=== PATIENT | female | born 1955 | race Caucasian/White ===

== ENCOUNTER 2016-06-29 12:08 | Inpatient (IN) | payer OTHER ==
[~2016-06-29] VITALS: Ht 167.6 cm; Wt 101.0 kg
[~2016-06-29 12:08] MED LIST changes: -ASPI1TAB69 PO; -BENA40TA PO; -CETI1TAB39 PO; -CYCL1TAB29 PO; -HYDR-3366 PO; -MULTTAB67 PO; -OXYB10TA PO; -PREV15CA15 PO; -VITA10002 PO; -VITA10007 PO; -VITA200T; -WALKER WHEELS/F1 MIS
[2016-06-29] MEDS ORDERED: PREV15CA15 PO (12:33)
[2016-06-29] MEDS ORDERED: BENA40TA PO (12:33)
[2016-06-29] MEDS ORDERED: VITA200T (12:35)
[2016-06-29] MEDS ORDERED: MULTTAB67 PO (12:35)
[2016-06-29] MEDS ORDERED: ASPI1TAB69 PO (12:35)
[2016-06-29] MEDS ORDERED: CETI1TAB39 PO (12:35)
[2016-06-29] MEDS ORDERED: VITA10007 PO (12:35)
[2016-06-29] MEDS ORDERED: OXYB10TA PO (14:04)
[2016-07-05] MEDS ORDERED: LACTATED RINGER'S 1000 ML IV SCH (06:45)
[2016-07-05] MEDS ORDERED: INSULIN HUMAN REGULAR 1,000 UNITS/10 ML VIAL SQ PRN (06:45)
[2016-07-05] MEDS ORDERED: VANCOMYCIN HCL 1000 MG ON-CALL/NS 250 ML IV SCH ×2 (06:45)
[2016-07-05] MEDS ORDERED: SODIUM CHLORID 0.9% 500 ML IV SCH (06:45)
[2016-07-05] MEDS ORDERED: METOPROLOL TARTRATE 25 MG TAB PO PRN (06:45)
[2016-07-05 07:01] VITALS: BP 177/84; PULSE 64; RESP 20; TEMP 98; O2SAT 95
[2016-07-05] MEDS ORDERED: THROMBIN (TOPICAL) 5,000 UNIT VIAL ONE (07:35)
[2016-07-05] MEDS ORDERED: GELFOAM SIZE 100 ONE (07:35)
[2016-07-05] MEDS ORDERED: FAMOTIDINE 20 MG/2 ML VIAL ONE (07:54)
[2016-07-05] MEDS ORDERED: DEXAMETHASONE SOD PHOS 4 MG/ML VIAL ONE (07:54)
[2016-07-05] MEDS ORDERED: MIDAZOLAM HCL 2 MG/2 ML VIAL ONE (07:54)
[2016-07-05] MEDS ORDERED: ACETAMINOPHEN 1000 MG/100 ML VIAL IV ONE (07:54)
[2016-07-05] MEDS: BUPIVACAINE/EPINEPHRINE 0.5% 50 ML VIAL ONE ×2 (08:48→10:12)
[2016-07-05] MEDS ORDERED: SUGAMMADEX SODIUM 200 MG/2 ML VIAL IV PUSH ONE ×2 (08:59)
[2016-07-05] MEDS: VANCOMYCIN HCL 1000 MG VIAL ONE ×2 (09:47→10:13)
[2016-07-05] MEDS ORDERED: fentaNYL CITRATE 250 MCG/5 ML AMP ONE (10:47)
[2016-07-05] MEDS ORDERED: *ONDANSETRON 4 MG VIAL PERIprocedural Use ONLY ONE (10:55)
[2016-07-05] MEDS ORDERED: ZOLPIDEM TARTRATE 5 MG TAB PO PRN (11:00)
[2016-07-05] MEDS ORDERED: ALUMINUM/MAGNESIUM/SIMETH 30 ML CUP PO PRN (11:00)
[2016-07-05] MEDS ORDERED: PROMETHAZINE INJ 25 MG/ML VIAL IM PRN (11:00)
[2016-07-05] MEDS ORDERED: SODIUM CHLORIDE 0.9% FLUSH 5 ML FLUSH IVF PRN (11:00)
[2016-07-05] MEDS ORDERED: ACETAMINOPHEN 325 MG TAB PO PRN (11:00)
[2016-07-05] MEDS ORDERED: diphenhydrAMINE HCL 50 MG/ML VIAL IV PRN (11:00)
[2016-07-05] MEDS ORDERED: MAGNESIUM SULFATE INJ 2 GM in SODIUM CHLORIDE 0.9% INJ 100 ML IV PRN (11:00)
[2016-07-05] MEDS ORDERED: CALCIUM GLUCONATE INJ 1 GM in SODIUM CHLORIDE 0.9% INJ 100 ML IV PRN (11:00)
[2016-07-05] MEDS ORDERED: MORPHINE SULFATE 30 MG/30 ML PCA IV SCH (11:00)
[2016-07-05] MEDS ORDERED: BISACODYL 10 MG SUPP PR PRN (11:00)
[2016-07-05] MEDS ORDERED: NALOXONE HCL 0.4 MG/ML AMP IV PRN (11:00)
[2016-07-05] MEDS ORDERED: POTASSIUM CHLOR 20 MEQ PREMIX 100 ML IV PRN (11:00)
--- NOTE | 2016-07-05 11:01 | PD.OP ---
Senia Tapia M.D. Operative Report Date of Surgery: Jul 05, 2016 Preoperative Diagnosis: Intractable back pain with right L5 radiculopathy; severe L5-S1 degenerative disc disease with the facet arthropathy and disc protrusion with associated foraminal stenosis Postoperative Diagnosis: Same Procedure: Right L5-S1 transforaminal interbody fusion; L5-S1 pedicle screw fixation; L5- S1 interbody cage placement; microsurgical technique Anesthesia: Gen. endotracheal by Marco Adair Surgeon: Sachin Ruano M.D. Compliance Officer(s): Libby Alonso Operation and Findings: Following initiation of general endotracheal anesthesia, the patient had a Banda catheter placed along with sequential compression devices. A gram of vancomycin was administered intravenously and she was turned in a prone position on a Teo frame, on a Maulik table, and all pressure points adequately padded. The lumbosacral region was then prepped with Chloraprep and sterilely draped with Ioban along the usual sterile draping. A right paraspinal skin incision was then made extending from the L5-S1 level after infiltrating the skin with 0.5% Marcaine with epinephrine solution extending down through the fascia. The muscle fibers were split using avascular fatty plane and detached from the underlying facets, transverse process and lateral portion of lamina on the right side and a self-retaining retractor used for exposure. Intraoperative fluoroscopy was also used for level of confirmation along with microscope magnification for further dissection. There was significant facet and ligamentum flavum hypertrophy noted at the L5-S1 levels. Right L5-S1 facet was resected with a drill bit along with the lamina and there was severe foraminal and lateral recess stenosis from hypertrophied ligamentum flavum and facet which were decompressed. There was significant disc height collapse along with disc protrusion also leading to the foraminal stenosis. Epidural hemostasis was achieved with bipolar cautery and Gelfoam with thrombin. Subsequently entered into the disc space at the L5-S1 level with a #15 blade and annie were used for discectomy. I then placed PEEK cage packed with local autograft bone and more local autograft bone was packed adjacent to the cage in interspace for added interbody fusion. With placement of the cage, I was able to distract the interspace and opened up the foramen further bilaterally. Subsequently in order to facilitate the fusion and provide stabilization, pedicle screw fixation was undertaken using [place] spine screws on entry point at the right L5-S1 levels at the junction of the transverse process and facet. Subsequently using AP and lateral fluoroscopy tap and screw placement. The screws were then connected with a juaquin and locked in place with caps. The construct appeared very secure at this point. The area was then copiously irrigated with Vancomycin solution and powder. The retractors were removed and the bipolar cautery used for hemostasis. The muscle fascia was then approximated using 2-0 Vicryl interrupted stitches and then 3-0 Vicryl subcuticular stitches also placed in interrupted fashion. The final skin closure was completed with Mastisol and Steri-Strips. A sterile dressing was then applied. The patient then turned in supine position, extubated and taken to recovery room. There were no intraoperative complications. All sponge and needle counts were correct at the end of procedure. Estimated blood loss about 50 ml. Sachin Ruano MD Jul 05, 2016 11:00
--- NOTE | 2016-07-05 11:09 | RADRPT ---
EXAM DATE/TIME: 07/05/2016 08:07 [facility] COMPARISON: FLUOROSCOPY PORTABLE UP TO 1HR, July 05, 2016, 0:00. INDICATIONS : Post-op L5-S1 posterior lumbar fusion. MEDICAL HISTORY : None. SURGICAL HISTORY : None. ENCOUNTER: Initial ACUITY: 1 day PAIN SCORE: Non-responsive. LOCATION: Lumbar spine. FINDINGS: AP and lateral fluoroscopic views of the spine demonstrate surgical hardware traversing the right L5 and S1 spine with good anatomic alignment.. CONCLUSION: Fluoroscopic support for posterior spinal fusion.. Nicole Stokes MD on July 05, 2016 at 11:05 Board Certified Radiologist. This report was verified electronically.
--- NOTE | 2016-07-05 11:10 | RADRPT ---
EXAM DATE/TIME: 07/05/2016 08:07 [facility] COMPARISON: FLUOROSCOPY PORTABLE UP TO 1HR, July 05, 2016, 0:00. INDICATIONS : L5-S1 posterior lumbar fusion. Level localization. MEDICAL HISTORY : None. SURGICAL HISTORY : None. ENCOUNTER: Initial ACUITY: 1 day PAIN SCORE: Non-responsive. LOCATION: Lumbar spine. FINDINGS: A single lateral view of the lumbar spine was performed. There is normal alignment of the vertebral bodies without evidence of subluxation. There is a localizer seen posterior to the L5/ S1 disc space. CONCLUSION: Localizer seen posterior to the L5/S1 disc space. Nicole Stokes MD on July 05, 2016 at 11:07 Board Certified Radiologist. This report was verified electronically.
[2016-07-05] MEDS: NS + KCL 20 MEQ INJ 1,000 ML IV SCH ×2 (11:15→23:26)
[2016-07-05 11:25] LABS: AUTOMATED NEUTROPHIL # 6.8 TH/MM3 (1.8-7.7); BASOPHIL % 0.2 % (0.0-2.0); EOSINOPHIL # 0.1 TH/MM3 (0-0.4); EOSINOPHIL % 0.6 % (0.0-4.0); HEMATOCRIT 39.7 % (35.0-46.0); HEMO FLAGS DIFF FINAL; LYMPH % 16.2 % (9.0-44.0); LYMPHOCYTE # 1.4 TH/MM3 (1.0-4.8); MEAN CELL VOLUME 92.8 FL (80.0-100.0); MEAN CORPUSCULAR HEMOGLOBIN 30.4 PG (27.0-34.0); MEAN CORPUSCULAR HGB CONC 32.8 % (32.0-36.0); MONO % 1.6 % (0.0-8.0); NEUT % 81.4 % (16.0-70.0); PLATELET COUNT 227 TH/MM3 (150-450); RED BLOOD COUNT 4.28 MIL/MM3 (4.00-5.30); RED CELL DISTRIBUTION WIDTH 14.3 % (11.6-17.2); WHITE BLOOD COUNT 8.4 TH/MM3 (4.0-11.0)
[2016-07-05 11:37] LABS: BICARBONATE 27.3 MEQ/L (21.0-32.0); MAGNESIUM 1.7 MG/DL (1.5-2.5); POTASSIUM 3.7 MEQ/L (3.5-5.1)
[2016-07-05] MEDS ORDERED: ONDANSETRON HCL 4 MG/2 ML VIAL IV PUSH ONE (12:00)
[2016-07-05] MEDS ORDERED: ACETAMINOPHEN/HYDROcodone 325 MG/10 MG TAB PO PRN ×2 (12:00)
[2016-07-05] MEDS ORDERED: PHENYLEPH/NS 1000 MCG/10 ML SYR IV ONE (12:00)
[2016-07-05] MEDS ORDERED: LACTATED RINGER'S 1000 ML INJ 1,000 ML IV ONE (12:00)
[2016-07-05] MEDS ORDERED: ePHEDrine/NS 50 MG/5 ML SYR IV ONE (12:00)
[2016-07-05] MEDS ORDERED: ONDANSETRON HCL 4 MG/2 ML VIAL IV PRN (12:00)
[2016-07-05] MEDS ORDERED: DO NOT ADM ANY ANTICOAGULANT DRUGS XX PRN (12:00)
[2016-07-05] MEDS ORDERED: RESP: ALBUTEROL 2.5 MG/3 ML NEB (PRN) NEB (12:00)
[2016-07-05] MEDS ORDERED: MENTHOL LOZENGE SUCK-ON PRN (12:00)
[2016-07-05] MEDS ORDERED: PROPOFOL 200 MG/20 ML AMP IV ONE (12:00)
[2016-07-05] MEDS ORDERED: MAGNESIUM SULFATE 1 GM PREMIX 100 ML ONE (12:11)
[2016-07-05] MEDS ORDERED: *morphine SULFATE 8 MG/ML PERIprocedure ONLY ONE (12:33)
[2016-07-05] MEDS ORDERED: cloNIDine HCL 0.1 MG TAB PO PRN (13:00)
[2016-07-05] MEDS ORDERED: MAGNESIUM HYDROXIDE SUSP 30 ML CUP PO PRN (13:00)
[2016-07-05] MEDS ORDERED: *PROMETHAZINE 25 MG/ML VIAL PERIprocedural use ONLY ONE (13:14)
[2016-07-05] MEDS: CYCLOBENZAPRINE HCL 10 MG TAB PO SCH ×2 (13:45→20:08)
[2016-07-05] MEDS: PREGABALIN 100 MG CAP PO SCH ×2 (13:45→18:33)
[2016-07-05] MEDS: PCA - TOTAL MG MORPHINE DELIVERED PER SHIFT SCH ×2 (14:00→20:08)
[2016-07-05 14:40] VITALS: BP 128/63; PULSE 74; RESP 16; TEMP 96.8; O2SAT 97
[2016-07-05 20:00] VITALS: BP 129/64; PULSE 70; RESP 17; TEMP 95.2; O2SAT 96
[2016-07-05] MEDS: DOCUSATE SODIUM 100 MG CAP PO SCH (20:08)
[2016-07-05] MEDS: ATORVASTATIN 10 MG TAB PO SCH (20:08)
[2016-07-05] MEDS: SODIUM CHLORIDE 0.9% FLUSH 5 ML FLUSH IVF SCH (20:08)
[2016-07-06] VITALS (7 sets, daily range): BP systolic 114–156; BP diastolic 58–76; PULSE 60–79; RESP 16; TEMP 95.7–98.6; O2SAT 63–99
[2016-07-06] MEDS: CYCLOBENZAPRINE HCL 10 MG TAB PO SCH ×3 (04:00→20:50)
[2016-07-06] MEDS: PCA - TOTAL MG MORPHINE DELIVERED PER SHIFT SCH (06:00)
[2016-07-06] MEDS: LEVOTHYROXINE SODIUM 112 MCG TAB PO SCH (06:16)
--- NOTE | 2016-07-06 09:42 | HHI.NSPN ---
(Juliano Cole) History Chief Complaint: Incisional back pain (Juliano Cole) Interval History Pt underwent a L5/S1 TLIF with cage and pedicle screw fixation on 07/05/16. She complains of incisional back pain but tolerating well. No radiculopathy or paresthesias in LEs. She complains of burning sensation in right foot. Ambulating short distance. Sitting up with brace on. (Juliano Cole) Review of Systems General: Negative for: fever, chills, insomnia Respiratory: Negative for: shortness of breath, cough, sputum Cardiovascular: Negative for: chest pain Gastrointestinal: Negative for: nausea, vomitting, diarrhea, constipation ( Juliano Cole) Exam Results Vital Signs Date Time Temp Pulse Resp B/P Pulse Ox O2 Delivery O2 Flow Rate FiO2 07/06/16 08:00 97.2 60 16 146/76 97 07/05/16 17:58 Nasal Cannula 2.00 Intake and Output 07/05/16 07/05/16 07/06/16 08:00 16:00 00:00 Intake Total 100 ml 808 ml Output Total 325 ml 2375 ml Balance -225 ml -1567 ml (Juliano Cole) Physical Examination Resp: CTA bilaterally Heart: NSR no murmurs Abd: Soft positive bs Skin: No cyanosis or erythema. Pt up in chair with breakfast will ask RN to change bandage when back in bed. Muscle: Moves LEs with good strength. Neuro: Pt awake and alert. Follows commands well. Speech clear and appropriate. (Juliano Cole) Lab, Micro, Other Results Laboratory Tests Test 07/05/16 11:12 White Blood Count 8.4 TH/MM3 Red Blood Count 4.28 MIL/MM3 Hemoglobin 13.0 GM/DL Hematocrit 39.7 % Mean Corpuscular Volume 92.8 FL Mean Corpuscular Hemoglobin 30.4 PG Mean Corpuscular Hemoglobin 32.8 % Concent Red Cell Distribution Width 14.3 % Platelet Count 227 TH/MM3 Mean Platelet Volume 7.4 FL Neutrophils (%) (Auto) 81.4 % Lymphocytes (%) (Auto) 16.2 % Monocytes (%) (Auto) 1.6 % Eosinophils (%) (Auto) 0.6 % Basophils (%) (Auto) 0.2 % Neutrophils # (Auto) 6.8 TH/MM3 Lymphocytes # (Auto) 1.4 TH/MM3 Monocytes # (Auto) 0.1 TH/MM3 Eosinophils # (Auto) 0.1 TH/MM3 Basophils # (Auto) 0.0 TH/MM3 CBC Comment DIFF FINAL Differential Comment Sodium Level 141 MEQ/L Potassium Level 3.7 MEQ/L Chloride Level 107 MEQ/L Carbon Dioxide Level 27.3 MEQ/L Anion Gap 7 MEQ/L Blood Urea Nitrogen 10 MG/DL Creatinine 0.81 MG/DL Estimat Glomerular Filtration 72 ML/MIN Rate Random Glucose 155 MG/DL Calcium Level 8.7 MG/DL Magnesium Level 1.7 MG/DL 07/05/16 07/05/16 07/06/16 15:00 23:00 07:00 Intake Total 100 ml 808 ml 1040 ml Output Total 325 ml 2375 ml 1475 ml Balance -225 ml -1567 ml -435 ml Intake Oral 360 ml 240 ml IV Total 100 ml 448 ml 800 ml Output Urine Total 325 ml 2375 ml 1475 ml # Bowel Movements 0 0 (Juliano Cole) Medical Decision Making Impression and Plan A: 60 y/o FM s/p L5/S1 TLIF with cage and pedicle screw fixation P: Continue to monitor Continue with current care Rehab efforts. (Juliano Cole) Attending Statement The exam, history, and the medical decision-making described in the above note were completed with the assistance of the mid-level provider. I reviewed and agree with the findings presented. I attest that I had a [id number] encounter with the patient on the same day, and personally performed and documented my assessment and findings in the medical record. Mild incisional pain and significantly improved right leg pain. Ambulating in hallway independently with a walker. Possible d/c tomorrow if stable. (Sachin Ruano MD) Juliano Cole Jul 06, 2016 09:41 Sachin Ruano MD Jul 06, 2016 11:25
[2016-07-06] MEDS: MULTIVITAMIN TAB PO SCH (10:00)
[2016-07-06] MEDS: PREGABALIN 100 MG CAP PO SCH ×3 (10:00→18:31)
[2016-07-06] MEDS: LISINOPRIL 20 MG TAB PO SCH (10:00)
[2016-07-06] MEDS: VENLAFAXINE HCL XR 75 MG CAP PO SCH (10:01)
[2016-07-06] MEDS: DOCUSATE SODIUM 100 MG CAP PO SCH ×2 (10:01→20:50)
[2016-07-06] MEDS: PANTOPRAZOLE SOD 20 MG DELAYED RELEASE TAB PO SCH (10:01)
[2016-07-06] MEDS: amLODIPine BESYLATE 5 MG TAB PO SCH (10:02)
[2016-07-06] MEDS: ASPIRIN EC 81 MG TABEC PO SCH (10:02)
[2016-07-06] MEDS: TOLTERODINE TARTRATE 4 MG CAP LA PO SCH (10:02)
[2016-07-06] MEDS: CETIRIZINE HCL 10 MG TAB PO SCH (10:03)
[2016-07-06] MEDS: SODIUM CHLORIDE 0.9% FLUSH 5 ML FLUSH IVF SCH ×2 (10:03→20:51)
[2016-07-06] MEDS ORDERED: MORPHINE SULFATE 4 MG/ML INJ IV PUSH PRN (10:15)
[2016-07-06] MEDS: LIOTHYRONINE SODIUM 5 MCG TAB PO SCH (10:15)
[2016-07-06] MEDS ORDERED: CYCL1TAB29 PO (10:18)
[2016-07-06] MEDS ORDERED: HYDR-3366 PO (10:18)
[2016-07-06] MEDS: ATORVASTATIN 10 MG TAB PO SCH (20:50)
[2016-07-07] VITALS: BP 145/76; PULSE 65; RESP 16; TEMP 97.9; O2SAT 94
[2016-07-07] MEDS: LEVOTHYROXINE SODIUM 112 MCG TAB PO SCH (05:00)
[2016-07-07] MEDS: CYCLOBENZAPRINE HCL 10 MG TAB PO SCH ×2 (05:00→11:38)
[2016-07-07 08:00] VITALS: BP 118/64; PULSE 71; RESP 18; TEMP 98.2; O2SAT 95
[2016-07-07] MEDS: LIOTHYRONINE SODIUM 5 MCG TAB PO SCH (09:00)
[2016-07-07] MEDS: PANTOPRAZOLE SOD 20 MG DELAYED RELEASE TAB PO SCH (09:20)
[2016-07-07] MEDS: PREGABALIN 100 MG CAP PO SCH ×2 (09:20→11:38)
[2016-07-07] MEDS: CETIRIZINE HCL 10 MG TAB PO SCH (09:20)
[2016-07-07] MEDS: DOCUSATE SODIUM 100 MG CAP PO SCH (09:20)
[2016-07-07] MEDS: ASPIRIN EC 81 MG TABEC PO SCH (09:20)
[2016-07-07] MEDS: MULTIVITAMIN TAB PO SCH (09:20)
[2016-07-07] MEDS: VENLAFAXINE HCL XR 75 MG CAP PO SCH (09:20)
[2016-07-07] MEDS: TOLTERODINE TARTRATE 4 MG CAP LA PO SCH (09:20)
[2016-07-07] MEDS: amLODIPine BESYLATE 5 MG TAB PO SCH (09:20)
[2016-07-07] MEDS: LISINOPRIL 20 MG TAB PO SCH (09:21)
[2016-07-07] MEDS: SODIUM CHLORIDE 0.9% FLUSH 5 ML FLUSH IVF SCH (09:26)
--- NOTE | 2016-07-07 10:58 | HHI.NSPN ---
History Chief Complaint: Incisional back pain Interval History Pt underwent a L5/S1 TLIF with cage and pedicle screw fixation on 07/05/16. She complains of incisional back pain but tolerating well. No radiculopathy or paresthesias in LEs. She complains of burning sensation in right foot. Ambulating short distance. Sitting up with brace on. 07/07/16: Pt awake and alert. Doing well. Mild incisional back pain. No radiculopathy or paresthesias in LEs. Ambulating with walker in halls. Wants to go home today. Review of Systems General: Negative for: fever, chills, insomnia Respiratory: Negative for: shortness of breath, cough, sputum Cardiovascular: Negative for: chest pain Gastrointestinal: Negative for: nausea, vomitting, diarrhea, constipation Exam Results Vital Signs Date Time Temp Pulse Resp B/P Pulse Ox O2 Delivery O2 Flow Rate FiO2 07/07/16 08:00 98.2 71 18 118/64 95 07/06/16 23:09 21 07/05/16 17:58 Nasal Cannula 2.00 Intake and Output 07/06/16 07/06/16 07/07/16 08:00 16:00 00:00 Intake Total 1040 ml 480 ml 480 ml Output Total 1475 ml Balance -435 ml 480 ml 480 ml Physical Examination Resp: CTA bilaterally Heart: NSR no murmurs Abd: Soft positive bs Skin: No cyanosis or erythema. Incision is clean and dry. No signs of infection. New bandage placed. Muscle: Moves LEs with good strength. Ambulating well. Neuro: Pt awake and alert. Follows commands well. Speech clear and appropriate. Lab, Micro, Other Results Last Impressions Lumbar Spine X-Ray 07/05/16 0000 Signed Impressions: Service Date/Time: June 08:07 - CONCLUSION: Localizer seen posterior to the L5/S1 disc space. Nicole Stokes MD 07/06/16 07/06/16 07/07/16 15:00 23:00 07:00 Intake Total 480 ml 480 ml 480 ml Balance 480 ml 480 ml 480 ml Intake Oral 480 ml 480 ml 480 ml # Voids 3 2 2 # Bowel Movements 0 Medical Decision Making Impression and Plan A: 60 y/o FM s/p L5/S1 TLIF with cage and pedicle screw fixation P: Discharge pt home. Follow up as scheduled. Juliano Cole Jul 07, 2016 10:58
[2016-07-10] MEDS ORDERED: WALKER WHEELS/F1 MIS (14:33)
[2016-10-25] MEDS ORDERED: VITA10002 PO (11:23)
== END 2016-07-07 11:58 | disposition home or self-care (01) | DRG 460 ==
LOC: HSDI 07-05 06:11 → EDUNIT# 07-05 08:00 → N06A 07-05 13:46
PROVIDERS: ADMIT Neurological Surgery; ATTEND Neurological Surgery
PROC: 0ST40ZZ Resection of Lumbosacral Disc, Open Approach (ICD-10-PCS; 2016-07-05)
PROC: 0SG30AJ Fusion of Lumbosacral Joint with Interbody Fusion Device, Posterior Approach, Anterior Column, Open Approach (ICD-10-PCS; principal; 2016-07-05 08:00)
DX: M51.17 Intervertebral disc disorders with radiculopathy, lumbosacral region (principal); E87.5 Hyperkalemia; I10 Essential (primary) hypertension; G57.12 Meralgia paresthetica, left lower limb; M48.07 Spinal stenosis, lumbosacral region; G47.30 Sleep apnea, unspecified; K21.9 Gastro-esophageal reflux disease without esophagitis; E03.9 Hypothyroidism, unspecified; E66.9 Obesity, unspecified; Z68.35 Body mass index [BMI] 35.0-35.9, adult; Z88.2 Allergy status to sulfonamides; Z87.891 Personal history of nicotine dependence
CPT/HCPCS: 72020; 72100; 76000; 80048; 83735; 85025; 86850; 86900; 86901; 94150; C1713; J0131; J0690; J1100; J2250; J2270; J2370; J2405; J2550; J3010; J3370; J3475; J3480; J7050; J7120

== ENCOUNTER → 2016-06-29 | Outpatient (CLI) | payer OTHER ==
[~2016-06-29] MED LIST: AMLO5TAB2 PO; ASPI1TAB69 PO; ATOR10TA15 PO; BENA40TA PO; CETI1TAB39 PO; CYCL1TAB29 PO; HYDR-3366 PO; LEVO112T2 PO; LIOT5TAB3 PO; LYRI100C PO; MULTTAB67 PO; OXYB10TA PO; PREV15CA15 PO; VENL75TA PO; VITA10002 PO; VITA10007 PO; VITA200T; WALKER WHEELS/F1 MIS
== END ==
LOC: CPRE 12:03
PROVIDERS: ATTEND Neurological Surgery
DX: Z01.812 Encounter for preprocedural laboratory examination (principal); M51.36 Other intervertebral disc degeneration, lumbar region; M51.16 Intervertebral disc disorders with radiculopathy, lumbar region; M99.83 Other biomechanical lesions of lumbar region; G57.12 Meralgia paresthetica, left lower limb

== ENCOUNTER → 2016-10-26 | Outpatient (CLI) | payer OTHER ==
[~2016-10-26] VITALS: Ht 167.6 cm; Wt 100.0 kg
[~2016-10-26] MED LIST changes: +ASPI1TAB69 PO; +BENA40TA PO; +CETI1TAB39 PO; +HYDR-3366 PO; +MULTTAB67 PO; +OXYB10TA PO; +PREV15CA15 PO; +VITA10002 PO; +VITA10007 PO; +WALKER WHEELS/F1 MIS
[2016-10-26 07:15] VITALS: BP 150/78; PULSE 64; RESP 16; TEMP 97.9; O2SAT 97
== END ==
LOC: HEND 06:48
PROVIDERS: ATTEND Internal Medicine Gastroenterology
DX: K44.9 Diaphragmatic hernia without obstruction or gangrene (principal)
CPT/HCPCS: 91010

== ENCOUNTER 2017-02-20 09:50 | Observation (INO) | payer OTHER ==
[~2017-02-20] VITALS: Ht 167.6 cm; Wt 100.2 kg
[~2017-02-20 09:50] MED LIST changes: +ASCO500T PO; +ASPI-110 PO; -ASPI1TAB69 PO; +CETI10 PO; -CETI1TAB39 PO; +CYAN1000P IM; -LYRI100C PO; +SLOW50TA PO; +VITA1000 PO; -VITA10002 PO; -VITA10007 PO; -WALKER WHEELS/F1 MIS
[2017-02-20] MEDS ORDERED: SODIUM CHLORID 0.9% 500 ML IV PRN (10:30)
[2017-02-20] MEDS ORDERED: CHLORHEXIDINE GLUCONATE 2 % 1 PACK (2 CLOTHS) TOPICAL PRN (10:30)
[2017-02-20] MEDS ORDERED: METOPROLOL TARTRATE 25 MG TAB PO PRN (10:30)
[2017-02-20] MEDS ORDERED: LACTATED RINGER'S 1000 ML IV PRN (10:30)
[2017-02-20] MEDS ORDERED: POVIDONE IODINE 5% (ANTISEPSIS KIT) 4 APPLICATIONS EACH NARE PRN (10:30)
[2017-02-20] MEDS ORDERED: INSULIN HUMAN REGULAR 1,000 UNITS/10 ML VIAL SQ PRN (10:30)
[2017-02-20] MEDS ORDERED: ONDANSETRON HCL 4 MG/2 ML VIAL IV PUSH SCH (10:45)
[2017-02-20] MEDS ORDERED: ACETAMINOPHEN 1000 MG/100 ML VIAL IV SCH (10:45)
[2017-02-20] MEDS ORDERED: metroNIDAZOLE 500 MG INJ 100 ML IV SCH (10:45)
[2017-02-20] MEDS ORDERED: ceFAZolin 2 GM PREMIX 50 ML IV SCH (10:45)
[2017-02-20] MEDS ORDERED: APREPITANT 40 MG CAP PO SCH (10:45)
[2017-02-20] MEDS ORDERED: PROPOFOL 200 MG/20 ML AMP IV ONE (12:00)
[2017-02-20] MEDS ORDERED: PHENYLEPH/NS 1000 MCG/10 ML SYR IV ONE (12:00)
[2017-02-20] MEDS ORDERED: ONDANSETRON HCL 4 MG/2 ML VIAL IV PUSH ONE (12:00)
[2017-02-20] MEDS ORDERED: ePHEDrine/NS 25 MG/5 ML SYR IV ONE (12:00)
[2017-02-20] MEDS ORDERED: ACETAMINOPHEN 1000 MG/100 ML 0 ML IV ONE (13:21)
[2017-02-20] MEDS ORDERED: SUGAMMADEX SODIUM 200 MG/2 ML VIAL IV PUSH ONE ×2 (13:21)
[2017-02-20] MEDS ORDERED: BUPIVACAINE/EPINEPHRINE 0.25% 50 ML VIAL ONE (13:32)
[2017-02-20] MEDS ORDERED: MIDAZOLAM HCL 2 MG/2 ML VIAL ONE (13:42)
[2017-02-20] MEDS ORDERED: FAMOTIDINE 20 MG TAB ONE (13:43)
[2017-02-20] MEDS ORDERED: METOCLOPRAMIDE HCL 10 MG/2 ML VIAL ONE (13:46)
[2017-02-20] MEDS ORDERED: MAGNESIUM HYDROXIDE SUSP 30 ML CUP PO PRN (17:45)
[2017-02-20] MEDS ORDERED: HYDROmorphone HCL PF 1 MG/ML VIAL IV PUSH PRN (17:45)
[2017-02-20] MEDS ORDERED: ONDANSETRON HCL 4 MG/2 ML VIAL IV PRN (17:45)
[2017-02-20] MEDS ORDERED: SODIUM CHLORIDE 0.9% FLUSH 10 ML FLUSH IV FLUSH PRN (17:45)
[2017-02-20] MEDS ORDERED: Post-op Orders (for Pharmacy) MISC XX ONE (17:45)
[2017-02-20] MEDS ORDERED: ACETAMINOPHEN 325MG/HYDROcodone 7.5MG/15ML UDC PO PRN (17:45)
[2017-02-20] MEDS ORDERED: DO NOT ADM ANY ANTICOAGULANT DRUGS PRN (18:00)
[2017-02-20] MEDS ORDERED: *morphine SULFATE 8 MG/ML PERIprocedure ONLY ONE ×2 (18:19→19:17)
[2017-02-20] MEDS: SODIUM CHLOR 0.9% 1000 ML INJ 1,000 ML IV SCH (18:23)
[2017-02-20 20:00] VITALS: BP 133/63; PULSE 81; RESP 16; TEMP 96; O2SAT 95
[2017-02-20] MEDS: SODIUM CHLORIDE 0.9% FLUSH 10 ML FLUSH IV FLUSH SCH (21:00)
[2017-02-20] MEDS: metroNIDAZOLE 500 MG INJ 100 ML IV SCH (21:02)
[2017-02-21] VITALS: BP 141/65; PULSE 72; RESP 16; TEMP 96.7; O2SAT 94
[2017-02-21 04:00] VITALS: BP 153/70; PULSE 72; RESP 16; TEMP 96.4; O2SAT 96
[2017-02-21] MEDS: SODIUM CHLOR 0.9% 1000 ML INJ 1,000 ML IV SCH ×2 (05:30→14:02)
[2017-02-21] MEDS: metroNIDAZOLE 500 MG INJ 100 ML IV SCH ×2 (05:31→13:38)
[2017-02-21] MEDS: ACETAMINOPHEN 325MG/HYDROcodone 7.5MG/15ML UDC PO PRN ×3 (05:38→13:35)
[2017-02-21] MEDS ORDERED: LIOTHYRONINE SODIUM 5 MCG TAB PO SCH (06:00)
[2017-02-21 06:14] VITALS: O2SAT 96
[2017-02-21 08:00] VITALS: BP 165/72; PULSE 70; RESP 19; TEMP 98.3; O2SAT 95
[2017-02-21] MEDS ORDERED: LISINOPRIL 20 MG TAB PO SCH (09:00)
[2017-02-21] MEDS ORDERED: VENLAFAXINE HCL XR 75 MG CAP PO SCH (09:00)
[2017-02-21] MEDS ORDERED: amLODIPine BESYLATE 5 MG TAB PO SCH (09:00)
[2017-02-21] MEDS: SODIUM CHLORIDE 0.9% FLUSH 10 ML FLUSH IV FLUSH SCH (09:00)
[2017-02-21 12:00] VITALS: BP 146/63; PULSE 60; RESP 19; TEMP 97; O2SAT 95
--- NOTE | 2017-02-21 12:11 | HHI.PR ---
Subjective Subjective Notes Sitting in chair Pain controlled C/O nausea Objective Vitals/I&O Vital Signs Date Time Temp Pulse Resp B/P (MAP) Pulse Ox O2 Delivery O2 Flow Rate FiO2 02/21/17 08:00 98.3 70 19 165/72 (103) 95 02/21/17 06:14 Nasal Cannula 2.00 Abdomen: Post-op tenderness Extremities: Perfused Wound Wound : Wound Location: Abdomen Appearance: Clean & Dry A/P Assessment and Plan 61yo F POD#1 Laparoscopic hiatal hernia repair -Add Phenergan, scopolamine patch, and Reglan for nausea -Continue with frequent ambulation -Continue to increase PO intake as tolerated The exam, history, and the medical decision-making described in the above note were completed with the assistance of the mid-level provider. I reviewed and agree with the findings presented. I attest that I had a [id number] encounter with the patient on the same day, and personally performed and documented my assessment and findings in the medical record. Discharge Planning D/C home possibly later this evening if able to tolerated PO intake Milton Jay Feb 21, 2017 12:11 Garrett Proctor MD Mar 10, 2017 16:31
[2017-02-21] MEDS ORDERED: PROMETHAZINE HCL SYRUP 6.25 MG/5 ML CUP PO PRN (12:15)
[2017-02-21] MEDS ORDERED: SCOPOLAMINE 1.5 MG PATCH T-DERMAL ONE (14:00)
[2017-02-21] MEDS ORDERED: METOCLOPRAMIDE HCL SYRUP 10 MG/10 ML UDC PO SCH (14:00)
[2017-02-21 16:00] VITALS: BP_SYST 168; PULSE 66; RESP 20; TEMP 97.7; O2SAT 96
[2017-02-21] MEDS ORDERED: ONDA4TAB7 SL (16:08)
[2017-02-21] MEDS ORDERED: ENOXAPARIN SODIUM 30 MG/0.3 ML SYRINGE SQ SCH (17:00)
[2017-02-24] MEDS ORDERED: REMOVE OLD PATCH T-DERMAL ONE (14:00)
--- NOTE | 2017-03-13 11:59 | MP ---
cc: TUCKER PROCTOR DATE OF SURGERY: 02/20/2017 DATE OF : 1955 PREOPERATIVE DIAGNOSIS Reflux unresponsive to medical management. POSTOPERATIVE DIAGNOSIS Reflux unresponsive to medical management. PROCEDURE Robot-assisted laparoscopic hiatal hernia repair with partial fundoplication, 270 degree wrap. SURGEON Tucker Proctor. ANESTHESIA General endotracheal. ESTIMATED BLOOD LOSS Scant. FINDINGS Moderate-sized hiatal hernia. SPECIMENS None. COMPLICATIONS None. OPERATION The patient was brought to the operating room and placed on the operating table in the supine position. Bilateral sequential inflation devices were placed on the lower extremities. General anesthesia was instituted. A Banda catheter was placed. Antibiotics were initiated. The abdomen was prepped and draped sterilely. A point 15 cm distal to the xiphoid in the midline was anesthetized with 0.25% Marcaine with epinephrine. A skin incision was made. A 5 mm OptiView port was placed under direct vision and pneumoperitoneum created. Under direct vision a 5 mm left upper quadrant port, 8 mm robotic left upper quadrant, 8 mm robotic right upper quadrant and 5 mm right upper quadrant ports were placed. Prior to placement of all ports the skin and peritoneum were anesthetized with 0.25% Marcaine with epinephrine. The 5 mm epigastric port was switched out for a 12 mm port under direct vision. Both 2-0 and 0 silk sutures were placed into the abdominal cavity as well as Ray-Deepika gauze and a Chetna drain. A Meagan-Flex retractor was placed. The left lobe of the liver was retracted. The patient was placed in reverse Trendelenburg position. At this point the laparoscopic tower was removed from the patient's bedside. The da Mateo robot was brought to the bedside and docked in place. I then broke scrub and I went to the console. Attention was focused in the upper abdomen. The hepatic gastric ligament was opened. The inferior aspect of the right crura of the diaphragm was dissected. The angle of His was taken down. The inferior aspect of the left crura of the diaphragm was dissected. A Chetna was then placed around the proximal stomach. The stomach and GE junction was withdrawn into the abdominal cavity. The crura of the diaphragm was dissected anteriorly, both right and left. The distal esophagus was mobilized out of the mediastinum into the abdominal cavity. The hernia sac was excised. The crura of the diaphragm was approximated with 0 silk sutures in a [id number] manner. Three interrupted stitches were placed posteriorly. The vasculature along the greater curve of the stomach was starting at a distance of a third way down on the greater curve and this was taken up towards the angle of His. The posterior ligamentous attachments were sharply . The fundoplication was then created. The greater curve was brought from the patient's left to the right and an initial stitch was placed on the posterior cardia to the crura of the diaphragm. A wrap was then created 270 degrees. The first stitch was placed superiorly from the 10 o'clock position on the right crura to the stomach and esophagus. Three interrupted stitches were then placed from the stomach to the esophagus on the right. On the left a stitch was then placed in the 1 o'clock position on the left crura to the stomach and then the esophagus. Three additional interrupted stitches were placed inferior to this from the stomach to the esophagus creating a 270 degree wrap. The operative field was inspected, hemostasis was present. At this point the robot was undocked. The laparoscopic tower was brought back into view. I then scrubbed back in. All needles, [place] and Ray-Deepika gauze were removed from the abdominal cavity. The Meagan-Flex retractor was then removed. The fascia at the 12 mm port site was approximated with 0-Vicryl using a fascial closure device. The CO2 was released. All additional laparoscopic ports were removed. All skin incisions were closed with 4-0 Monocryl. The abdominal wall was cleaned and a sterile dressing was placed. The patient was awakened and taken to the recovery room. MD LIAN Rashid/AREN /2:47 AM /11:43 AM
== END 2017-02-21 19:15 | disposition home or self-care (01) ==
LOC: INTOOBSV 09:50 → HSDI 09:50 → N07B 19:46
PROVIDERS: ADMIT Surgery; ATTEND Surgery
DX: K44.9 Diaphragmatic hernia without obstruction or gangrene (principal); K21.9 Gastro-esophageal reflux disease without esophagitis; K29.00 Acute gastritis without bleeding; I10 Essential (primary) hypertension
CPT/HCPCS: 00790; 43281; 94150; 96361; 96365; 96366; 96375; G0378; J0131; J0690; J2250; J2270; J2370; J2405; J2765; J3010; J7030; J7120; J8501